=== PATIENT | male | born 1955 | race Two or more races ===

== ENCOUNTER 2016-06-19 10:30 | Emergency (ER) | payer OTHER, MEDICAID ==
[2016-06-19 10:59] VITALS: BP 120/80; PULSE 80; RESP 18; TEMP 100; O2SAT 94
[2016-06-19 11:20] LABS: COLOR YELLOW; LEUKOCYTE ESTERASE,URINE NEGATIVE (NEGATIVE); NITRITE,URINE NEGATIVE (NEGATIVE); PH,URINE 5.5 (5.0-7.5)
--- NOTE | 2016-06-19 11:47 | UCPHY ---
H & P Time Seen by Provider: 06/19/16 11:12 Patient Type: Established HPI/ROS: This patient is moderately disabled and is limited verbally. Most of the history is from his brother who is his loan processing supervisor. The brother feels the the patient has been urinating more frequently but also has been complaining of dysuria. No blood has been noted. He has not had abdominal pain, vomiting or back pain. He has had neck pain for approximately 1 month and the brother has noticed that the patient tends to keep his head flexed and he attributes this to the fact that he has been using [employer]il[employer] which makes him extremely tired. He has also noticed that the patient snores at night when sleeping. for that reason He is requesting a cervical collar. The patient has had no cold-type symptoms except for a dry hacky cough which is mild. Smoking Status: Never smoked Physical Exam: This is a well-developed well-nourished obese male who is in no acute distress. He does tend keep his head neck flexed although he does move it freely. There is some posterior tenderness involving the midline and the paraspinous musculature. The patient is noticed to have a temperature of 99.9 degrees. The abdomen is soft nontender. There is no CVA tenderness. The pharynx is normal. Breath sounds are clear and symmetric. He has no respiratory distress Constitutional: Initial Vital Signs Temperature (C) 37.7 C 06/19/16 10:56 Heart Rate 80 06/19/16 10:56 Respiratory Rate 18 06/19/16 10:56 Blood Pressure 120/80 06/19/16 10:56 O2 Sat (%) 94 06/19/16 10:56 O2 Delivery Mode Room Air Allergies/Adverse Reactions: No Known Allergies Allergy (Unverified 02/26/15 16:54) Home Medications: Medication Instructions Recorded Cephalexin [Keflex] 500 mg PO QID #40 cap 02/26/15 High Cholestrol Med 02/26/15 Htn Medication 02/26/15 Cephalexin [Keflex] 500 mg PO QID #28 cap 06/19/16 Medical Decision Making ED Course/Re-evaluation: A soft cervical collar was applied. Differential Diagnosis: In spite of a negative urinalysis patient was treated with antibiotics for possible prostatitis. Culture is pending. - Data Points Laboratory Results: 06/19/16 11:17 Urine Color YELLOW Urine Appearance CLEAR Urine pH 5.5 (5.0-7.5) Ur Specific [place] >= 1.030 (1.002-1.030) Urine Protein NEGATIVE (NEGATIVE) Urine Ketones NEGATIVE (NEGATIVE) Urine Blood NEGATIVE (NEGATIVE) Urine Nitrate NEGATIVE (NEGATIVE) Urine Bilirubin NEGATIVE (NEGATIVE) Urine Urobilinogen 0.2 EU (0.2-1.0) Ur Leukocyte Esterase NEGATIVE (NEGATIVE) Urine Glucose NEGATIVE (NEGATIVE) Departure - Departure Disposition: Home, Routine, Self-Care Clinical Impression: Dysuria Condition: Good Instructions: Dysuria (ED) Additional Instructions: If symptoms do not resolve in 2 days he should be re-evaluated. If symptoms seem to be worsening you should be seen sooner. If the neck pain is not better in 5 or 6 days you should follow-up with your primary care physician. Adult Pain & Fever Control: We recommend Acetaminophen (Tylenol) and Ibuprofen (Motrin, Advil) for pain and fever control. When fever is high or pain severe, both drugs can be used at the same time, but at different intervals. Please note the time differences. Your dose is: Acetaminophen [650]mg every 4 to 6 hours ibuprofen [600]mg every [6] hours with food OR naproxen Sodium (Aleve) [440]mg every 12 hours. Note: do not take Acetaminophen with Hydrocodone (Vicodin, Lortab) or Oxycodone (Percocet). These medications also contain Acetaminophen. No more than 3000 mg of Acetaminophen should be taken in 24 hours (for an adult) . The maximal dose of ibuprofen that it is safe in a 24-hour period is 2400 mg. You may take 400 mg every 4 hours, 600 mg every 6 hours or 800 mg every 8 hours safely. Call for pending test results in [ 2 ] day(s). [facility] [phone] [facility] [place] [facility] [phone] [facility] [phone] Tests pending: Urine culture. Referrals: Kitty Leonard MD [Primary Care Provider] - As per Instructions Prescriptions: Cephalexin [Keflex] 500 mg PO QID #28 cap - PQRS PQRS Measurement: Not applicable
== END 2016-06-19 11:55 | disposition home or self-care (01) ==
LOC: CED 10:30
DX: R30.0 Dysuria (principal); R35.0 Frequency of micturition; M54.2 Cervicalgia; E66.9 Obesity, unspecified; F71 Moderate intellectual disabilities
CPT/HCPCS: G0463; L0120; 81003-PO; 99214-PO

== ENCOUNTER 2016-08-15 09:36 | Emergency (ER) | payer OTHER, MEDICAID ==
[2016-08-15] MEDS ORDERED: IPRATROPIUM/ALBUTEROL 3 ML DEYVIAL IH ONE (10:13)
[2016-08-15] MEDS ORDERED: DEXAMETHASONE 10 MG/ML VIAL IVP ONE (10:14)
[2016-08-15] MEDS ORDERED: IPRATROPIUM/ALBUTEROL 3 ML DEYVIAL ONE (10:14)
--- NOTE | 2016-08-15 10:21 | UCPHY ---
H & P Time Seen by Provider: 08/15/16 10:06 Patient Type: Established HPI/ROS: HPI Wheezing, fever, sore throat. 61-year-old male. He is moderately disabled and verbal communication is difficult with him. History is limited because of this. His sister who is seen a physician upstairs from our urgent care apparently dropped him off at the urgent care stating that he had been wheezing and had a fever and complaining of a sore throat. On my evaluation, the patient denies sore throat. He denies having a hard time breathing. ROS: Constitutional: As above, no chills. No weakness. Eyes: No discharge. No changes in vision. ENT: As above. No nasal congestion or rhinorrhea. Respiratory: No cough. As above. Cardiac: No chest pain, no palpitations. Gastrointestinal: No abdominal pain, no vomiting, no diarrhea. Genitourinary: No hematuria. No dysuria or increased frequency with urination. Musculoskeletal: No back pain. No neck pain. No myalgias or arthralgias. Skin: No rashes. Neurological: No headache. No focal weakness or altered sensation. Past medical history: Hyperlipidemia, hypertension, learning disability, morbid obesity, cerebral palsy, vitamin-D deficiency, anxiety, chronic hypoxia. No surgical history. Review of his medical records indicates that his above symptoms of wheezing and intermittent grunting have been going on for at least last couple of months. Social history: Lives with family. He came with his sister in law. Physical Exam: General Appearance: Alert, no distress. Audible wheezing but no stridor. This patient appears well-hydrated and well-nourished. He is moderately obese. His head is in a flexed position. This is apparently chronic. Eyes: Pupils equal and round no pallor or injection. No lid edema, erythema or injection. ENT, Mouth: Mucous membranes are moist. The pharyngeal tissues are unremarkable. No edema or swelling. No asymmetry suggestive of abscess. No erythema or exudates. On auscultation of his neck, there is no stridor. Wheezing is more pronounced. Possibly this is upper airway in nature. Respiratory: There are no retractions, diffuse wheezing mostly on exhalation, greater in the upper lung novoa, decent air movement. No tachypnea.. Cardiovascular: Regular rate and rhythm. No murmur. Neurological: Motor sensory function is grossly intact. Cranial nerves are normal. Skin: Warm and dry, no rashes. Musculoskeletal: Neck is supple and nontender. Head in the flexed position as noted above. Extremities are symmetrical. All joints range without pain or impingement. Psychiatric: No agitation. No depression. Database: EKG: Imaging: Chest x-ray PA and lateral; the cardiac mediastinal silhouette is unremarkable. No evidence of infiltrate or pneumothorax. No acute cardiopulmonary disease process noted. Interpreted by me. Procedures: Emergency department course: IV placed. He was placed on a monitor. His vital signs have been reviewed. Chest x-ray will be obtained. He will be given IV Decadron for possible reactive airway disease versus bronchitis versus possible upper airway inflammation. He will be given albuterol/Atrovent nebulizers x2. 12:00 p.m., patient re-evaluated. Resting comfortably at this time. Vital signs reviewed. Blood pressure on recheck 117/72 and 111/73. Heart rate has been in the low 90s. Temperature repeated he is afebrile. Pulse oximetry on room air is 93-94%. Repeat pulmonary exam he is clear on auscultation bilaterally. He does have some wheezing when he leans his head forward which is mild and much less significant than on initial exam. When you extend his head backwards and straight his neck this resolves. I discussed admission with him and his [id number]. The patient does not want to be admitted and states that he feels better and is asking to go home. He does have close family support at home. The [id number] assured me that he would be watched closely and should his condition deteriorate at all they will take him to [facility] emergency department for re-evaluation. I feel this is reasonable. Follow-up was also discussed with the 2 of them. All of their questions were answered. The patient was discharged in good condition. Differential Diagnosis: The differential diagnosis on this patient includes but is not limited to reactive airway disease, asthma, bronchitis, laryngitis. Peritonsillar abscess , retropharyngeal abscess, tracheitis, epiglottitis, pneumonia unlikely. This represents a partial list of diagnoses considered. These considerations are based on history, physical exam, past history, reassessment and diagnostic testing. Smoking Status: Never smoked Constitutional: Initial Vital Signs Temperature (C) 36.4 C 08/15/16 10:00 Heart Rate 108 H 08/15/16 10:00 Respiratory Rate 28 H 08/15/16 10:00 Blood Pressure 90/51 L 08/15/16 10:00 O2 Sat (%) 90 L 08/15/16 10:00 O2 Delivery Mode Room Air Allergies/Adverse Reactions: No Known Allergies Allergy (Verified 08/15/16 11:19) Home Medications: Medication Instructions Recorded Escitalopram Oxalate 08/15/16 Lexapro 08/15/16 Lisinopril/Hctz 20/12.5MG 08/15/16 NIACIN 08/15/16 [place] 3 1,000 mg Softgel 08/15/16 SIMVASTATIN 08/15/16 Medical Decision Making - Data Points Laboratory Results: Laboratory Results 08/15/16 10:30 08/15/16 10:30 08/15/16 08/15/16 08/15/16 10:55 10:50 10:30 WBC RBC Hgb Hct MCV MCH MCHC RDW Plt Count MPV Neut % (Auto) Lymph % (Auto) [place] % (Auto) Eos % (Auto) Baso % (Auto) Nucleat RBC Rel Count Absolute Neuts (auto) Absolute Lymphs (auto) Absolute Monos (auto) Absolute Eos (auto) Absolute Basos (auto) Absolute Nucleated RBC Immature Gran % Immature Gran # PT INR APTT VBG Lactic Acid 0.8 mmol/L mmol/L (0.7-2.1) Sodium 142 mEq/L mEq/L (134-144) Potassium 4.3 mEq/L mEq/L (3.5-5.2) Chloride 102 mEq/L mEq/L (97-110) Carbon Dioxide 28 mEq/l mEq/l (22-31) Anion Gap 12 mEq/L mEq/L (8-16) BUN 35 mg/dL H mg/dL (7-23) Creatinine 1.6 mg/dL H mg/dL (0.7-1.3) Estimated GFR 44 Glucose 95 mg/dL mg/dL (70-100) Calcium 9.6 mg/dL mg/dL (8.5-10.4) Total Bilirubin 0.7 mg/dL mg/dL (0.1-1.4) Influenza Typ A,B (DFA) NEGATIVE FOR FLU (NEGATIVE) 08/15/16 08/15/16 08/15/16 10:30 10:30 10:30 WBC 6.60 10^3/uL 10^3/uL (3.80-9.50) RBC 4.31 10^6/uL L 10^6/uL (4.40-6.38) Hgb 13.1 g/dL L g/dL (13.7-17.5) Hct 39.4 % L % (40.0-51.0) MCV 91.4 fL fL (81.5-99.8) MCH 30.4 pg pg (27.9-34.1) MCHC 33.2 g/dL g/dL (32.4-36.7) RDW 11.3 % L % (11.5-15.2) Plt Count 268 10^3/uL 10^3/uL (150-400) MPV 9.9 fL fL (8.7-11.7) Neut % (Auto) 72.1 % % (39.3-74.2) Lymph % (Auto) 16.5 % % (15.0-45.0) [place] % (Auto) 9.5 % % (4.5-13.0) Eos % (Auto) 1.1 % % (0.6-7.6) Baso % (Auto) 0.5 % % (0.3-1.7) Nucleat RBC Rel Count 0.0 % % (0.0-0.2) Absolute Neuts (auto) 4.76 10^3/uL 10^3/uL (1.70-6.50) Absolute Lymphs (auto) 1.09 10^3/uL 10^3/uL (1.00-3.00) Absolute Monos (auto) 0.63 10^3/uL 10^3/uL (0.30-0.80) Absolute Eos (auto) 0.07 10^3/uL 10^3/uL (0.03-0.40) Absolute Basos (auto) 0.03 10^3/uL 10^3/uL (0.02-0.10) Absolute Nucleated RBC 0.00 10^3/uL 10^3/uL (0-0.01) Immature Gran % 0.3 % % (0.0-1.1) Immature Gran # 0.02 10^3/uL 10^3/uL (0.00-0.10) PT 13.6 SEC SEC (12.0-15.0) INR 1.07 (0.83-1.16) APTT 28.3 SEC SEC (23.0-38.0) VBG Lactic Acid Cancelled Sodium Potassium Chloride Carbon Dioxide Anion Gap BUN Creatinine Estimated GFR Glucose Calcium Total Bilirubin Influenza Typ A,B (DFA) Medications Given: Discontinued Medications Albuterol/Ipratropium (Duoneb) 6 ml IH EDNOW ONE Stop: 08/15/16 10:14 Last Admin: 08/15/16 10:30 Dose: 6 ml Dexamethasone (Decadron Injection) 12 mg IVP EDNOW ONE Stop: 08/15/16 10:15 Last Admin: 08/15/16 11:00 Dose: 12 mg Sodium Chloride (Ns) 1,000 mls @ 0 mls/hr IV ONCE ONE PRN Reason: Wide Open Stop: 08/15/16 11:12 Last Admin: 08/15/16 11:00 Dose: 1,000 mls Ibuprofen (Motrin) 600 mg PO EDNOW ONE Stop: 08/15/16 11:01 Last Admin: 08/15/16 11:00 Dose: 600 mg Departure - Departure Disposition: Home, Routine, Self-Care Clinical Impression: Wheezing, Viral syndrome, Bronchitis, Dehydration Condition: Good Instructions: Acute Bronchitis (ED), Wheezing (ED), Dehydration (ED) Additional Instructions: Read and follow provided instructions. Keep him well hydrated. Encourage frequent fluids. Follow-up with your primary care physician in on Thursday without fail for re- evaluation. Albuterol meter dose inhaler: 1-2 puffs every 2-4 hours as needed for wheezing or shortness of breath. Tylenol 650 mg every 6-8 hours as needed for fever over the next 2-3 days. Return to the emergency department immediately for worsening symptoms, worsening wheezing, shortness of breath, fever or other serious concerns. Referrals: NONE *PRIMARY CARE P,. [Primary Care Provider] - As per Instructions - PQRS PQRS Measurement: 134: Depression screening and followup, PRIME MD-PHQ2 (12 years and older) Over the last 2 weeks, how often have you been bothered by any of the following problems? 1. Feeling down, depressed, or hopeless? 2. Little interest or pleasure in doing things? Answered no to both questions. 130: Documentation of medications. Reviewed all patient medications, doses, route and frequency. 226: Do you smoke? No. 47: 65 and older: Advanced care planning. Patient designates surrogate decision maker as family. 51: 18 years old and older with diagnosis of COPD, spirometry performance. NA 52: 18 years old and older with COPD and symptoms of COPD or FEV1<60% predicted prescribed a B Agonist. NA
[2016-08-15 10:47] LABS: % IMMATURE GRANULYOCYTES 0.3 % (0.0-1.1); ABSOLUTE IMMATURE GRANULOCYTES 0.02 10^3/uL (0.00-0.10); ADD DIFF? NO; ADD MORPH? NO; ADD SCAN? NO; ATYPICAL LYMPHOCYTE FLAG 0 (0-99); FRAGMENT RBC FLAG 0 (0-99); HEMATOCRIT 39.4 % (40.0-51.0); HEMOGLOBIN 13.1 g/dL (13.7-17.5); LEFT SHIFT FLG 0 (0-99); LIPEMIA HEMOLYSIS FLAG 80 (0-99); MEAN CELL HEMOGLOBIN 30.4 pg (27.9-34.1); MEAN CELL HEMOGLOBIN CONCENTR. 33.2 g/dL (32.4-36.7); MEAN CELL VOLUME 91.4 fL (81.5-99.8); MEAN PLATELET VOLUME 9.9 fL (8.7-11.7); PLATELET CLUMPS FLAG 0 (0-99); PLATELET COUNT 268 10^3/uL (150-400); RED BLOOD CELL COUNT 4.31 10^6/uL (4.40-6.38); RED CELL DISTRIBUTION WIDTH 11.3 % (11.5-15.2)
[2016-08-15 10:55] LABS: INR 1.07 (0.83-1.16); PROTIME(PATIENT) 13.6 SEC (12.0-15.0)
[2016-08-15 10:56] LABS: APTT 28.3 SEC (23.0-38.0)
[2016-08-15 10:59] LABS: BILIRUBIN,TOTAL 0.7 mg/dL (0.1-1.4); CALCIUM 9.6 mg/dL (8.5-10.4); CREATININE 1.6 mg/dL (0.7-1.3); POTASSIUM 4.3 mEq/L (3.5-5.2)
[2016-08-15] MEDS ORDERED: IBUPROFEN 600 MG TAB PO ONE ×2 (11:00)
[2016-08-15] MEDS ORDERED: NS 1,000 ML IV ONE (11:11)
[2016-08-15] MEDS ORDERED: ALBUTEROL INH PREPACK MDI TAKEHOME ONE (12:15)
[2016-08-15 12:16] VITALS: BP 111/73; PULSE 92; RESP 20; TEMP 97.2; O2SAT 94
== END 2016-08-15 12:35 | disposition home or self-care (01) ==
LOC: CED 09:36
DX: J20.9 Acute bronchitis, unspecified (principal); E86.0 Dehydration
CPT/HCPCS: 71020; 96361; 96374; G0463; 80048-PO; 82247-PO; 83605-PO; 85025-PO; 85610-PO; 85730-PO; 87400-PO; 99215-PO